=== PATIENT | female | born 2000 | race Caucasian/White ===

== ENCOUNTER 2018-08-13 01:35 | Emergency (ER) | payer SELFPAY ==
[2018-08-13 01:36] VITALS: BP 131/80; PULSE 99; RESP 16; TEMP 36.3; O2SAT 99; BMI 24.9
--- NOTE | 2018-08-13 01:48 | RAD_ITS ---
STUDY: X-RAY CHEST REASON FOR EXAM: Female, 18 years old. Chest TECHNIQUE: PA and lateral COMPARISON: None. FINDINGS: The lungs are clear and expanded. There is no demonstrated pleural abnormality. Normal size heart. Normal mediastinum and ralph. Normal visualized pulmonary arteries. Normal visualized aortic arch and descending thoracic aorta. Normal visualized thoracic spine. Normal visualized ribs, clavicles, and shoulders. There is no demonstrated abnormality of the visualized soft tissue structures of the upper abdomen. RAD/Chest PA and Lateral IMPRESSION: Normal x-ray examination of the chest. Electronically Signed: Emmanuel Marr MD at 2:39 EDT , Service support ,
--- NOTE | 2018-08-13 01:48 | EKG12_ITS ---
Test Reason : CP Blood Pressure : / mmHG Vent. Rate : 088 BPM Atrial Rate : 088 BPM P-R Int : 150 ms QRS Dur : 104 ms QT Int : 352 ms P-R-T Axes : 052 046 011 degrees QTc Int : 425 ms Normal sinus rhythm Normal ECG Confirmed by JOSLYN MULLIGAN, RIVERA ([id number]), managing editor ZAIN FERGUSON ([id number]) on 08/14/2018 12:05:59 PM Referred By: IRAJ Confirmed By:RIVERA JORGENSEN MD
--- NOTE | 2018-08-13 01:48 | ED.VIS.GEN ---
History of Present Illness Chief Complaint: Chest Pain Onset: Today Narrative: Patient stated for the last 2 hours she had a pulling sensation in her left chest. No significant pain. She took 4 baby aspirin. Its been continuous but waxes and wanes. It is mild currently. No associated symptoms. Occasionally she will get some tingling in her left hand fingers. She is never had this before. Denies any cardiac pulmonary embolism or dissection risk factors. She denies any significant pain. No shortness of breath. Is not movement related. She cannot reproduce it. Nothing makes it better or worse. Past Medical History - Allergies and Home Meds Allergies/Adverse Reactions: Allergies No Known Allergies Allergy (Verified 08/13/18 01:39) Primary Care Physician: NOT,DEFINED [NON-STAFF] - Prior records reviewed: Yes Past Medical History: - - Constipation Surgical History: - - Reviewed Smoking Status: Never smoker Alcohol: None Drugs: None Review of Systems General: Denies: Chills, Fever, Sweats Eyes: Denies: Visual changes - bilaterally, Diplopia ENT: Denies: Rhinorrhea, Sore throat Cardiovascular: Reports: Chest pain. Denies: Palpitations Respiratory: Denies: Dyspnea, Cough, Dyspnea on exertion Gastrointestinal: Denies: Abdominal pain, Nausea, Vomiting, Diarrhea, Melena, Hematochezia Genitourinary: Denies: Dysuria, Hematuria, Frequency Musculoskeletal: Denies: Back pain, Extremity Pain Skin: Denies: Rash, Wounds Neurological: Denies: Headache, Weakness, Numbness Physical Exam Vital Signs/Narrative: Vital Signs Temp Pulse Resp BP Pulse Ox 08/13/18 01:36 97.4 F L 99 16 131/80 H 99 General: Well nourished, Well developed, No Acute Distress Head: Normocephalic, Atraumatic Eyes: Perrl, EOMI ENT: Moist mucous membranes, No rhinorrhea Neck: Supple, Nontender Cardiovascular: Regular rate, Regular rhythm, No murmurs Respiratory: No distress, CTA bilaterally, Chest nontender Abdomen: Soft, Nontender, Nondistended, Normal bowel sounds Back: Nontender, Normal Inspection Extremities: Nontender, No edema Skin: Normal color, No rash Neurological: Alert, Oriented x3, Cranial nerves II-XII grossly intact, Normal Strength, Normal Sensation Psychological: Normal affect, Normal Mood Diagnostic/Tx/Re-eval - Medical Decision Making EKG shows sinus rhythm at a rate of 88. T wave inversion in inferior lead III. No ischemic findings otherwise. No arrhythmias. Chest x-ray obtained. Chest x-ray shows nothing acute. Positive significant bowel gas under the left diaphragm in the large intestine. I feel this is likely the cause of the pulling sensation she is experiencing under her diaphragm. I do not feel this is an acute coronary syndrome PE or dissection. I do not feel she has an emergent cause of this symptoms that she is experiencing. She has no cardiac PE or dissection risk factors normal vital signs. She is resting comfortably. She is describing this is a pulling sensation. She will try to massage the gas through her follow-up. ED Disposition - Plan for ED Patient: Disposition: [facility] Diagnosis: Chest discomfort Instructions: ED Chest Pain Atypical Unkn Cause Referrals: NOT,DEFINED [NON-STAFF] -
[2018-08-13 02:28] VITALS: BP 118/62; PULSE 80; RESP 16; O2SAT 100
== END 2018-08-13 02:29 | disposition home or self-care (01) ==
PROVIDERS: Emergency Provider Emergency Medicine
DX: R07.89 Other chest pain (principal); R20.2 Paresthesia of skin
CPT/HCPCS: 71046; 93005; 99283